=== PATIENT | female | born 1955 | race Caucasian/White ===

== ENCOUNTER 2024-10-27 10:24 | Emergency (ER) | payer OTHER, MEDICAID, SELFPAY ==
[2024-10-27 10:25] VITALS: BP 153/97; PULSE 100; RESP 26; TEMP 37.1; O2SAT 94
[2024-10-27 10:29] VITALS: PULSE 100; RESP 26; O2SAT 94
[2024-10-27 11:17] VITALS: BMI 25.8
--- NOTE | 2024-10-27 11:19 | PC.NURSE ---
PATIENT ARRIVED ED VIA EMS SECONDARY TO SHORTNESS OF BREATH SINCE LAST NIGHT. PATIENT STATES SHE WAS UP A LOT LAST NIGHT WITH SHORTNESS OF BREATH AND USED HER PRESCRIBED RESCUE INHALER WITH MINIMAL RELIEF. PATIENT STATES WHEN SHE GOT UP THIS AM SHE HAD A BREATHING TREATMENT WITH NO RELIEF. EMS ARRIVED WITH PATIENT ABLE TO SPEAK FULL SENTENCES WITH MODERATE SOB WITH WHEEZING. PATIENT STATES SHE FEELS BETTER AFTER 2 BREATHING TREATMENT IN AMBULANCE. PATIENT STATES SHE STOPPED SMOKING 9 MONTHS AGO AFTER SMOKING FOR GREATER THAN 30 YEARS. PATIENT PLACED ON MONITOR, PA AT BEDSIDE. WILL CONTINUE TO MONITOR.
--- NOTE | 2024-10-27 11:20 | PD.EDSOB ---
ED SOB =RME/HPI General Chief Complaint: Shortness of Breath/Dyspnea Stated Complaint: SOB Time Seen by Provider: 10/27/24 11:19 Arrival date/time: 10/27/24 10:24 This is a 69-year-old female that comes into the emergency room with complaints of shortness of breath that started last night. Patient states she took her rescue inhaler last night with little relief. Patient states she used her inhaler again this morning with no relief. Patient was given 2 breathing treatments en route. Patient feels better. Patient reports history of high blood pressure was a previous smoker and stopped couple months ago. Patient was 1 pack a day smoker for the past 30 years. Patient also has a history of hyper lipidemia, anxiety, high blood pressure COPD and hypothyroidism. Patient denies fever, chills, nausea, vomiting, diarrhea, urinary symptoms. Related Data Home Medications ?Medication ?Instructions ?Recorded ?Confirmed atorvastatin 10 mg tablet 10 mg PO QDAY 10/24/23 10/27/24 levothyroxine 75 mcg tablet 75 mcg PO QDAY 10/24/23 10/27/24 (Euthyrox) lisinopril 10 mg tablet 10 mg PO QDAY 10/24/23 10/27/24 Previous Rx's ?Medication ?Instructions ?Recorded fluticasone 250 mcg-salmeterol 50 1 each inhalation Q12H #60 ea 03/01/23 mcg/dose blistr powdr for inhalation (Advair Diskus) alprazolam 0.5 mg tablet (Xanax) 0.5 mg PO BID PRN Anxiety #10 tabs 10/25/23 albuterol sulfate 90 mcg/actuation 1 inh inhalation QID PRN shortness 01/05/24 aerosol inhaler of breath or wheezing #8.5 grams fluticasone propionate 220 2 inh inhalation BID #12 grams 01/05/24 mcg/actuation HFA aerosol inhaler albuterol sulfate 2.5 mg/3 mL 2.5 mg (3 mL) inhalation Q4H PRN 10/27/24 (0.083 %) solution for nebulization shortness of breath or wheezing #75 mL azithromycin 250 mg tablet See Rx Instructions PO .COMPLEX #6 10/27/24 tabs Allergies Allergy/AdvReac Type Severity Reaction Status Date / Time aspirin Allergy Verified 10/26/23 06:05 ibuprofen Allergy Verified 10/26/23 06:05 prednisone Allergy Verified 10/26/23 06:05 Review of Systems Review of Systems Systems Reviewed: All systems reviewed, normal except as documented Past Medical History Past Medical History NEUROLOGIC: Negative Neurological Disorders CARDIAC: Positive Cardiac Disorders, Hypercholesterolemia and Hypertension; Negative Myocardial Infarction, Peripheral Vascular Disease, Congestive Heart Failure, Valvular Heart Disease, Rheumatic Fever, Edema, Pericarditis, Cellulitis, Hypotension or Varicose Veins RESPIRATORY: Positive Chronic Obstructive Pulmonary Disease (COPD), Asthma and Bronchitis; Negative Emphysema, Pneumonia, Pulmonary Fibrosis, Cystic Fibrosis, Tuberculosis, Pulmonary Embolism or Sleep Apnea GASTROINTESTINAL: Negative Gastrointestinal Disorders GENITOURINARY: Negative Genitourinary Disorders or Renal Disease MUSCULOSKELETAL: Negative Musculoskeletal Disorders ENDOCRINE: Positive Hypothyroidism; Negative Endocrine Disorders, Diabetes Mellitus Type 1, Diabetes Mellitus Type 2 or Hyperthyroidism PSYCHO/SOCIAL: Positive Anxiety OTHER HISTORY: Negative Hospitalization, Autoimmune Disease, Down Syndrome, Developmental Delay, Shingles, Falls, Organ Transplant, MRSA, Clostridium Difficile or Cancer Family History FAMILY HISTORY: Positive Family Respiratory Disorders (Mother (COPD)), Family Cardiac Disorders (Mother (CHF)) and Family Gastrointestinal Problems (Father (Duodenal ulcer)) Surgical History SURGICAL: Positive Hysterectomy and Section; Negative Cardiac Surgery, Open Heart Surgery, Coronary Artery Bypass Graft, Valve Replacement, Vascular Surgery, Coronary Stent, Cardiac Catheterization, Pacemaker, Angiogram, Auto Implanted Cardiovert Defib, Carotid Endarterectomy, Endocrine Surgery, Thyroidectomy, Ear Surgery, Abdominal Surgery, Joint Replacement, Neurologic Surgery, Brain Shunt, Mastectomy, Lumpectomy, Tubal Ligation or Organ Transplant Social History SMOKING STATUS: Never smoker ED Exam General General appearance: Present alert and in no apparent distress Head Head exam: Present atraumatic Eye Eye exam: Present normal appearance, PERRL and EOMI ENT ENT exam: Present normal exam, normal oropharynx and mucous membranes moist Neck Neck exam: Present normal inspection, full ROM and trachea midline Chest Chest inspection: Present normal inspection and symmetric chest wall rise Respiratory Respiratory exam: Present other (wheezing throughout improved after breathing tx ) Cardiovascular Cardiovascular exam: Present regular rate and normal rhythm Abdominal Exam Abdominal exam: Present soft Extremities Exam Extremities exam: Present normal inspection and full ROM Back Exam Back exam: Present normal inspection and full ROM Neurological Exam Neurological exam: Present alert, oriented X3 and CN II-XII intact Psychiatric Psychiatric exam: Present normal affect and normal mood Skin Skin exam: Present warm, dry, intact and normal color Course Quality Measures none Orders Category Date Time Status Bedside COVID-19 Antigen Test NOW Care 10/27/24 12:49 Completed Bedside Influenza A&B Antigen Test NOW Care 10/27/24 12:49 Completed XR chest 1V Stat Exams 10/27/24 11:27 Completed CBC Stat Lab 10/27/24 11:44 Completed Comprehensive Metabolic Panel Stat Lab 10/27/24 11:44 Completed Albuterol/Ipratr Rt Carrol [Duoneb Rt Carrol] Med 10/27/24 11:27 Discontinued 3 ml INH X1 ONE Albuterol/Ipratr Rt Carrol [Duoneb Rt Carrol] Med 10/27/24 12:51 Discontinued 3 ml INH X1 ONE Dexamethasone Inj [Decadron Inj] Med 10/27/24 12:48 Discontinued 10 mg PO X1 ONE Vital Signs Vital signs: Vital Signs Temperature 98.8 F 10/27/24 10:25 Pulse Rate 100 10/27/24 10:25 Respiratory Rate 26 H 10/27/24 10:25 Blood Pressure 153/97 H 10/27/24 10:25 Pulse Oximetry (%) 94 L 10/27/24 10:25 Oxygen Delivery Method Blow-by 10/27/24 10:25 Oxygen Flow Rate 8 10/27/24 10:25 Shortness of Breath / Dyspnea MDM Narrative MDM Narrative:: Patient feels better after breathing treatments. Wheezing almost completely resolved. Patient had a total of 2 brething tx patient was given a dose of Decadron. Patient reports that she had allergies to prednisone and was scared of taking steroids. Patient feels better now. I explained at length with patient that she likely needs to be on a preventative medication to prevent her from having these exacerbations. She states that she is going to see her primary doctor tomorrow I will send patient home with nebulizer because she ran out. Told patient to follow-up with primary provider in 1 to 2 days. Come back to the emergency room symptoms change or worsen. chest x ray: FINDINGS: Lines and Tubes: Overlying monitoring leads. Lungs: Clear. Pleura: No pneumothorax or pleural effusion. Cardiomediastinal Silhouette: Unchanged uncoiled aorta and calcified aortic arch. Soft Tissues/Bones: Similar osteopenia and moderate bony degenerative changes. Similar old healed right posterior lateral seventh rib fracture. IMPRESSION: No acute pulmonary findings. Patient data External records reviewed:: [facility] previous records Clinical information provided by:: patient Social determinants that could affect healthcare access:: none Patient has the following chronic illnesses:: see hpi How is presenting disease/condition affected by chronic disease/condition?: exacerbated by Evaluation data The following diagnostics were reviewed and interpreted by me:: lab results, radiology exam(s) and EKG tracing(s) Lab and/or radiology exams considered but not ordered:: none Interpretation Summary: see note Medications / Prescriptions Medications or Prescriptions considered but not ordered:: none Medication administrations:: Medication Administration History Discontinued Medications Albuterol/Ipratropium (Albuterol/Ipratropium (Duoneb) Rt Carrol 3 Ml Nebu) 3 ml INH X1 ONE Stop: 10/27/24 11:28 Last Admin: 10/27/24 11:53 Dose: 3 ml Documented By: [facility] Albuterol/Ipratropium (Albuterol/Ipratropium (Duoneb) Rt Carrol 3 Ml Nebu) 3 ml INH X1 ONE Stop: 10/27/24 12:52 Last Admin: 10/27/24 13:14 Dose: 3 ml Documented By: [facility] Dexamethasone Sodium Phosphate (Dexamethasone Sod Phos Inj 10 Mg/Ml Vial) 10 mg PO X1 ONE Stop: 10/27/24 12:49 Last Admin: 10/27/24 13:01 Dose: 10 mg Documented By: [facility](2) see mar Consultations Consultation(s) initiated? (list below): No Diagnosis Shortness of Breath Differential Diagnosis: acute exacerbation of chronic obstructive airways disease, congestive heart failure, community acquired pneumonia and asthma with exacerbation Most likely diagnosis given after review of the tests above:: copd exacerbation Admission Indicated Admission indicated?: not indicated Admission Request Was there a request for admission?: No Disposition Plan Disposition Plan: Discharge Discharge Attestation Discharge Attestation: The patient and all family members were given an opportunity to ask questions and understood the discharge instructions. Discharge instructions specifically effects, indications for sooner follow up or return to the emergency department, and the expected course of current diagnosis. Patient condition: Stable Discharge Plan Plan Patient Disposition: HOME (Self Care) Patient condition on transfer: Stable Prescriptions/Referrals Prescriptions/Med Rec: New albuterol sulfate 2.5 mg /3 mL (0.083 %) solution for nebulization 2.5 mg inhalation Q4H PRN (Reason: shortness of breath or wheezing) Qty: 75 0RF azithromycin 250 mg tablet See Rx Instructions .ROUTE .COMPLEX Qty: 6 0RF Rx Instructions: For 250 mg dose pack: take 500 mg today (day 1), then 250 mg for 4 days (days 2-5) No Action fluticasone propion-salmeterol [Advair Diskus] 250-50 mcg/dose blister with device 1 each INH Q12H MDD 2 Qty: 60 0RF atorvastatin 10 mg tablet 10 mg PO QDAY levothyroxine [Euthyrox] 75 mcg tablet 75 mcg PO QDAY lisinopril 10 mg tablet 10 mg PO QDAY alprazolam [Xanax] 0.5 mg Tablet 0.5 mg PO BID PRN (Reason: Anxiety) Qty: 10 0RF albuterol sulfate 90 mcg/actuation HFA aerosol inhaler 1 inh inhalation QID PRN (Reason: shortness of breath or wheezing) Qty: 8.5 0RF fluticasone propionate 220 mcg/actuation HFA aerosol inhaler 2 inh inhalation BID Qty: 12 0RF Referrals: Jacques SMALL),LOUANN Farah [Primary Care Provider] - In 1 week Problem List Clinical Impression: COPD exacerbation Patient/Caregiver Discharge Instructions Discharge Activity: activity as tolerated Education Materials: COPD Meds, ED COPD Flare Additional Instructions: Follow up with primary provider in 1-2 days. Come back to ED if symptoms change or worsen Print Language: Tunisian Stand Alone Forms: Yaima Award Info., Patient Portal Info Letter MINDY/GUTTER HANGER Supervising Physician MINDY/LOUANN Supervising Physician: [email or web address]
--- NOTE | 2024-10-27 11:27 | XR_ITS ---
EXAMINATION: XR chest 1V ORDERING PROVIDER: Amadna Jaimes NP HISTORY: sob TECHNIQUE: Single portable AP radiograph of the chest. COMPARISON: 10/23/2023, chest radiographs. FINDINGS: Lines and Tubes: Overlying monitoring leads. Lungs: Clear. Pleura: No pneumothorax or pleural effusion. Cardiomediastinal Silhouette: Unchanged uncoiled aorta and calcified aortic arch. Soft Tissues/Bones: Similar osteopenia and moderate bony degenerative changes. Similar old healed right posterior lateral seventh rib fracture. IMPRESSION: No acute pulmonary findings.
[2024-10-27 11:51] LABS: Basophils % (Auto) 0 % (0-2.5); Eosinophils # (Auto) 0.5 Thou/mm3 (0.0-0.5); Eosinophils % (Auto) 7 % (0-10); Hematocrit 41.7 % (36.0-46.0); Hemoglobin 13.9 g/dL (12.0-16.0); Immature Granulocytes % (Auto) 0 % (0-0); Immature Granulocytes Auto 0.01 Thou/mm3 (0.00-0.00); Lymphocytes % (Auto) 29 % (10-50); Mean Corpuscular HGB Conc 33.3 g/dl (31.0-37.0); Mean Corpuscular Hemoglobin 32.6 pg (25.0-35.0); Mean Corpuscular Volume 98 fL (80-100); Monocytes # (Auto) 0.8 Thou/mm3 (0.0-0.8); Monocytes % (Auto) 12 % (0-12); Neutrophils # (Auto) 3.6 Thou/mm3 (1.8-7.7); Neutrophils % (Auto) 52 % (37-80); Nucleated Red Blood Cell % 0 /100 WBC (0); Platelet Count 289 Thou/mm3 (140-440); RDW Standard Deviation 45.6 fL (36.4-46.3); Red Blood Count 4.27 Miln/mm3 (4.00-5.20); White Blood Count 6.9 Thou/mm3 (3.6-11.0)
[2024-10-27] MEDS: ALBUTEROL/IPRATROPIUM (Duoneb) RT SOL 3 ML NEBU INH ×2 (11:53→13:14)
[2024-10-27 11:58] VITALS: PULSE 89; RESP 20; O2SAT 100
[2024-10-27 12:07] LABS: Alanine Aminotransferase 19 U/L (10-49); Albumin, Serum 4.3 gm/dL (3.4-4.8); Alkaline Phosphatase 83 U/L (46-116); Anion Gap 5 (7-16); Aspartate Amino Transferase 13 U/L (0-34); BUN/Creatinine Ratio 17 Ratio (12-20); Bilirubin,Total 0.3 mg/dL (0.3-1.2); Blood Urea Nitrogen 12 mg/dL (9-23); Calcium 9.2 mg/dL (8.3-10.6); Calcium (Corrected) 9.2 mg/dL (8.5-10.1); Carbon Dioxide 30.4 mMol/L (20.0-31.0); Chloride 107 mMol/L (98-107); Creatinine (Component) 0.7 mg/dL (0.6-1.3); Estimated Creatinine Clearance 79.5 mL/min (>60); Globulin 2.2 gm/dL (2.3-3.5); Glucose 106 mg/dL (74-106); Osmolality,Calculated 282 (275-295); Potassium 4.2 mMol/L (3.4-5.1); Sodium 142 mMol/L (136-145); Total Protein 6.5 gm/dL (5.7-8.2); eGFR > 60 See Note
[2024-10-27] MEDS: DEXAMETHASONE SOD PHOS INJ 10 MG/ML VIAL PO (13:01)
[2024-10-27 13:08] VITALS: BP 133/88; PULSE 86; RESP 22; O2SAT 97
[2024-10-27 13:17] VITALS: PULSE 86; RESP 20; O2SAT 100
[2024-10-27 14:55] VITALS: BP 138/88; PULSE 78; RESP 16; O2SAT 96
== END 2024-10-27 14:56 | disposition home or self-care (01) ==
PROVIDERS: Nurse Practitioner Family; Emergency Provider Emergency Medicine; PCP Nurse Practitioner Primary Care
DX: J44.1 Chronic obstructive pulmonary disease with (acute) exacerbation (principal); E78.5 Hyperlipidemia, unspecified; Z87.891 Personal history of nicotine dependence; F41.9 Anxiety disorder, unspecified; E03.9 Hypothyroidism, unspecified
CPT/HCPCS: 36415; 71045; 80053; 85025; 87400; 87811; 94640; 99284; A9270; J1100